=== PATIENT | female | born 1960 | race Hispanic/Latino ===

== ENCOUNTER → 2024-01-14 | Outpatient (CLI) | payer MEDICARE | END | disposition home or self-care (01) | LOC: RAH 09:00 | PROVIDERS: ATTEND Family Medicine | DX: K31.89 Other diseases of stomach and duodenum (principal); R10.11 Right upper quadrant pain; Z90.49 Acquired absence of other specified parts of digestive tract | CPT/HCPCS: 76700 ==

== ENCOUNTER → 2024-01-17 | Outpatient (CLI) | payer MEDICARE | END | disposition home or self-care (01) | LOC: RAH 08:13 → EDUNIT# 08:30 | PROVIDERS: ATTEND Family Medicine | DX: Z12.31 Encounter for screening mammogram for malignant neoplasm of breast (principal); Z13.820 Encounter for screening for osteoporosis; Z78.0 Asymptomatic menopausal state | CPT/HCPCS: 77067; 77080 ==

== ENCOUNTER → 2024-01-21 | Outpatient (CLI) | payer MEDICARE | END | disposition home or self-care (01) | LOC: EDUNIT# 11:00 → RAH 11:21 | PROVIDERS: ATTEND Family Medicine | DX: D17.0 Benign lipomatous neoplasm of skin and subcutaneous tissue of head, face and neck (principal); R09.89 Other specified symptoms and signs involving the circulatory and respiratory systems; R22.1 Localized swelling, mass and lump, neck | CPT/HCPCS: 76536; 93880 ==

== ENCOUNTER 2024-04-22 06:07 | Day surgery (SDC) | payer MEDICARE ==
[~2024-04-22] VITALS: Ht 170.2 cm; Wt 79.4 kg
[2024-04-22] VITALS (12 sets, daily range): BP systolic 116–147; BP diastolic 56–73; PULSE 54–70; RESP 14–18; TEMP 97.5–98
[2024-04-22] MEDS ORDERED: CITA-107 PO (07:27)
[2024-04-22] MEDS ORDERED: OMEP20CA12 PO (07:27)
[2024-04-22] MEDS ORDERED: LEVO175C2 PO (07:27)
[2024-04-22] MEDS ORDERED: ESTR0.5T2 PO (07:27)
[2024-04-22] MEDS ORDERED: METO-408 PO (07:27)
[2024-04-22] MEDS ORDERED: LOSA50TA64 PO (07:27)
[2024-04-22] MEDS: 0.9%NACL 1000ML 1,000 ML IV ONE (07:47)
[2024-04-22] MEDS ORDERED: proPOFol 10 MG/ML 20ML VIAL IV ONE (09:00)
--- NOTE | 2024-04-22 10:22 | NUR ---
Full and complete discharge instructions given to Patient and family. Voiced understanding of GI procedures and follow up expectations/Diet. All questions answered. PIV removed with catheter tip intact. W/C to POV with Family.
== END 2024-04-22 10:23 | disposition home or self-care (01) ==
LOC: DAH 06:07 → ENDO 06:07
PROVIDERS: ATTEND Internal Medicine
DX: R10.13 Epigastric pain (principal); K31.89 Other diseases of stomach and duodenum; R14.0 Abdominal distension (gaseous); R68.81 Early satiety; R11.0 Nausea; K44.9 Diaphragmatic hernia without obstruction or gangrene; R15.2 Fecal urgency; I10 Essential (primary) hypertension; F41.9 Anxiety disorder, unspecified; E03.9 Hypothyroidism, unspecified; E78.5 Hyperlipidemia, unspecified; Z90.49 Acquired absence of other specified parts of digestive tract; Z90.710 Acquired absence of both cervix and uterus; Z79.899 Other long term (current) drug therapy
CPT/HCPCS: 43239; J7030; J2704; A4215 ×2; A4223; A4222; A4221; A4663; A4606; J3490